=== PATIENT | female | born 1990 | race Caucasian/White ===

== ENCOUNTER → 2018-07-30 18:16 | Outpatient (CLI) | payer SELFPAY ==
[2018-07-30 21:51] LABS: Chlamydia Trachomatis by PCR Negative (Negative); Neisserai gonorrhoeae by PCR Negative (Negative); Probe Check PASS; Sample Adequacy Control PASS; Specimen Processing Control PASS
[2018-08-06 09:57] LABS: HPV Reflexed? NOT INDICATED
--- OUTSIDE RECORDS SUMMARY | 2018-09-25 09:51 | XMS RPT_ITS ---
:1990 Author Organization OHIP Care Team Providers Name Role Phone Laurie Kirkland Attending Unavailable Laurie Kirkland Attending Unavailable Laurie Kirkland Referring Unavailable PROBLEMS PROBLEMS DATE TYPE CONDITION / CODE ATTENDING STATUS SOURCE 08/14/2018 Unknown Z34.81 - Encounter Laurie Kirkland Active [place] for supervision of Community other normal Hospital , first Repository trimester / Z34.81(ICD-10) 07/31/2018 Unknown Z12.4 - Encounter Laurie Kirkland Active [place] for screening for Community malignant neoplasm [facility] of cervix / Repository Z12.4(ICD-10) 07/31/2018 Unknown Z11.3 - Encounter Laurie Kirkland Active [place] for screening for Community infections with a Hospital predominantly Repository sexual mode of transmission / Z11.3(ICD-10) PROCEDURES PROCEDURES No Procedure Records FoundRESULTS RESULTS CBC W/DIFF, AUTOMATED Collected: 08/14/2018 Status: F Source: [place] 10:19 AM [facility] REPOSITORY TYPE CODE TESTS RESULT OUT OF RANGE REFERENCE UNITS LAB L100.1000 4.4-11.0 K/mm3 Normal WBC 10.1 LAB L100.1200 4.2-5.4 M/mm3 Normal RBC 4.88 LAB L100.1300 12.0-15.0 g/dl Normal HGB 13.8 LAB L100.1400 37-47 % Normal HCT 42.2 LAB L100.1500 81-99 fL Normal MCV 86.5 LAB L100.1600 27.0-32.0 pg Normal MCH 28.3 LAB L100.1700 32-36 g/gl Normal MCHC 32.7 LAB L100.1810 11.6-14.6 % Normal RDW CV 13.8 LAB L100.1820 35.1-43.9 fl Normal RDW SD 43.5 LAB L100.1900 150-450 K/mm3 Normal PLT 291 LAB L100.2000 6.2-12.0 fl Normal MPV 9.4 LAB L100.2100 47-70 % High NEUT% 72.7 LAB L100.2200 19-41 % Normal LY% 19.1 LAB L100.2300 0-10 % Normal MONO% 7.2 LAB L100.2400 0-5 % Normal EO% 0.5 LAB L100.2500 0-1 % Normal BASO% 0.3 LAB L100.2550 0.0-0.9 % Normal IM GRAN % 0.200 Result Comment: IG% - Immature Granulocytes (promyelocytes, myelocytes and metamyelocytes) > 1% indicates that a LEFT SHIFT is Present. LAB L100.2620 2.0-7.7 X10 3/uL Normal Absolute Neut 7.3 LAB L100.2720 0.83-4.51 X10 3/ul Normal Absolute Lymph 1.92 Performed By: #### L100.0100 #### [facility] [address], [place], [address] THYROID STIM HORMONE Collected: 08/14/2018 Status: F Source: [place] (TSH) 10:19 AM [facility] REPOSITORY TYPE CODE TESTS RESULT OUT OF RANGE REFERENCE UNITS LAB L501.9520 0.358-3.74 uIU/mL Normal TSH 2.33 Performed By: #### L501.9520 #### [facility] [address] [place], [address] URINALYSIS, ROUTINE Collected: 08/14/2018 Status: F Source: [place] (DIPSTICK) 10:19 AM [facility] REPOSITORY Order Comment: How was Urine Obtained? Urine, Random TYPE CODE TESTS RESULT OUT OF RANGE REFERENCE UNITS LAB L400.3000 Yellow COLOR Normal Yellow LAB L400.3050 Clear Normal CLARITY Cloudy LAB L400.3200 Normal mg/dl Normal GLUCOSE, UR Normal LAB L400.3300 Negative mg/dL Normal BILIRUBIN URINE Negative LAB L400.3400 Negative mg/dl Normal KETONE UR Negative LAB L400.3465 1.002-1.030 Normal SP.GR. DIPSTX 1.025 LAB L400.3550 5.0 - 8.0 pH UR Normal 6.0 LAB L400.3600 Negative mg/dl High PROT 15 DIPSTX LAB L400.3700 Normal mg/dl Normal UROBILI Normal LAB L400.3750 Negative Normal NITRITE UR Negative LAB L400.3780 Negative /ul Normal OCCULT BLOOD-UR Negative LAB L400.3800 Negative /ul LEUK Normal ESTERASE Negative Performed By: #### L400.2010 #### [facility] [address] [place], [address] RUBELLA IGG Collected: 08/14/2018 Status: F Source: [place] 10:19 AM [facility] REPOSITORY TYPE CODE TESTS RESULT OUT OF RANGE REFERENCE UNITS LAB L509.4000 IU/mL Normal Rubella IgG 40.5 Result Comment: Antibody results Interpretation of Immune Status < 5 IU/ml Presumed Non-immune 5 - < 10 IU/ml Equivocal > or = 10 IU/ml Presumed Immune Performed By: #### L509.4000, L3890.6005 #### [facility] [address] [facility] [place], [address] HIV - [facility] Collected: 08/14/2018 Status: F Source: [place] 10:19 AM [facility] REPOSITORY TYPE CODE TESTS RESULT OUT OF RANGE REFERENCE UNITS LAB L3890.6005 Nonreactive Normal HIV - [facility] Non-Reactive Performed By: #### L509.4000, L3890.6005 #### [facility] [address] [place], [address] T AND S-NO Collected: 08/14/2018 Status: F Source: [place] CHARGE W/PNP 10:19 AM [facility] REPOSITORY Order Comment: Reason for Type AND Screen/Red Cells: Surgery? N TYPE CODE TESTS RESULT OUT OF RANGE REFERENCE UNITS LAB B10.0800 A Normal BLOOD NEGATIVE TYPE GEL LAB B100.4050 Normal Ab SCREEN NEGATIVE GEL Performed By: #### B100.7550 #### [facility] [address] [place], [address] HEPATITIS B SURFACE Collected: 08/14/2018 Status: F Source: [place] 10:19 AM [facility] REPOSITORY TYPE CODE TESTS RESULT OUT OF RANGE REFERENCE UNITS LAB L3100.0400 Negative Normal HB Negative SURF AG Result Comment: Performed at: [facility] [id number] Decorator Mannequin: Prince Weiss PhD, Phone: [phone] Performed By: #### L3100.0390, L3100.0625 #### [facility] (refer to report for specific site) refer to report for address and phone number HEPATITIS C ANTIBODIES Collected: 08/14/2018 Status: F Source: [place] 10:19 AM [facility] REPOSITORY TYPE CODE TESTS RESULT OUT OF RANGE REFERENCE UNITS LAB L3100.0650 0.0-0.9 s/co ratio Normal HEP C AB <0.1 Result Comment: Negative: < 0.8 Indeterminate: 0.8 - 0.9 Positive: > 0.9 The CDC recommends that a positive HCV antibody result be followed up with a HCV Nucleic Acid Amplification test (783485). Performed By: #### L3100.0390, L3100.0625 #### [facility] (refer to report for specific site) refer to report for address and phone number RPR Collected: 08/14/2018 Status: F Source: [place] 10:19 AM [facility] REPOSITORY TYPE CODE TESTS RESULT OUT OF REFERENCE UNITS RANGE LAB L700.5100 NONREACTIVE Normal RPR NONREACTIVE Performed By: #### L700.5100 #### [facility] [address] [facility] [place], [place], [id number] CT/NG W[facility] BY PCR Collected: 07/30/2018 Status: F Source: [place] 2:45 PM [facility] REPOSITORY TYPE CODE TESTS RESULT OUT OF RANGE REFERENCE UNITS LAB L8200.2100 Negative Normal Chlam Negative Trac PCR LAB L8200.2200 Negative Normal NG by Negative PCR Performed By: #### L8200.2000 #### [facility] [address] [facility] [place], [place], [address] PAP I-G W/RFX HRHPV Collected: 07/30/2018 Status: F Source: [place] 2:45 PM [facility] REPOSITORY Order Comment: CYTOLOGY INFORMATION: - CLINICAL INFORMATION: - DATE LMP/MENOPAUSE: - COLLECTION VIAL: Thin Prep Vial - RN PSYCH SOURCE: CERVICAL/ENDOCERVICAL - COLLECTION TECHNIQUE: BRUSH/SPATULA Specimen Comment: [id number] Specimen Comment: Source.............Cervix;Endocervix Specimen Comment: Other.............. Specimen Comment: No. of containers..01 ThinPrep Vial TYPE CODE TESTS RESULT OUT OF RANGE REFERENCE UNITS LAB L7400.0800 . Normal DIAGN Comment Result Comment: NEGATIVE FOR INTRAEPITHELIAL LESION AND MALIGNANCY. THIS SPECIMEN WAS RESCREENED PART OF OUR MATERIAL CONTROL MANAGER PROGRAM. LAB L7400.0900 . Normal ADEQ Comment Result Comment: Satisfactory for evaluation. Endocervical and/or squamous metaplastic cells (endocervical component) are present. LAB L7400.1400 . Normal PERFORM Comment Result Comment: Nuzhat Williamson, Supervisory Binder Cutter Hand (ASCP) LAB L7400.1500 . Normal QC Comment REV Result Comment: Erna Blanco, Supervisory Binder Cutter Hand (ASCP) LAB L7400.2575 . Normal TEST METHOD Comment Result Comment: This liquid based ThinPrep(R) pap test was screened with the use of an image guided system. LAB L7400.2600 . Normal . COMM LAB L7400.2700 . Normal PAPSMR Comment Result Comment: The Pap smear is a screening test designed to aid in the detection of premalignant and malignant conditions of the uterine cervix. It is not a diagnostic procedure and should not be used as the sole means of detecting cervical cancer. Both false-positive and false-negative reports do occur. LAB L7400.2800 . Normal HPV RFLX Comment Result Comment: The HPV DNA reflex criteria were not met with this specimen result therefore, no HPV testing was performed. Performed at: [facility] [id number] Decorator Mannequin: Elizabeth Thao MD, Phone: [phone] Performed By: #### L7400.0350 #### [facility] (refer to report for specific site) refer to report for address and phone number ALLERGIES ALLERGIES No Allergies Records FoundENCOUNTERS ENCOUNTERS ADMIT/DISCHARGE ACCOUNT ADMITTING ENCOUNTER LOCATION SOURCE NUMBER CLASS 08/14/2018 [id number] Ambulatory [address] ing:WOBLAB Repository 07/30/[id number] ing:LABSPEC Repository PAYERS PAYERS ENCOUNTER GUARANTOR PAYER SUBSCRIBER SOURCE 08/14/2018 FABIÁN B Primary NOT GIVENUNK [facility] TR Insurance:SELF PAY [address] [address]Qpm: [phone] Number: Effective Repository [phone] () Date:2018-08-14 07/30/2018 FABIÁN B Primary NOT GIVENUNK [facility]8[address] TR Insurance:SELF PAY [address] [address]Kom: [phone] Number: Effective Repository [phone] () Date:2018-07-30
== END ==
PROVIDERS: Referring Provider Obstetrics & Gynecology; Visit Provider Obstetrics & Gynecology
DX: Z34.81 Encounter for supervision of other normal pregnancy, first trimester (principal); Z12.4 Encounter for screening for malignant neoplasm of cervix; Z11.3 Encounter for screening for infections with a predominantly sexual mode of transmission
CPT/HCPCS: 87491; 87591; 88175; G0145

== ENCOUNTER → 2018-08-14 10:13 | Outpatient (CLI) | payer SELFPAY ==
[2018-08-14 13:47] LABS: Color, Urine Yellow (Yellow); Glucose, Dipstick Normal (Normal); Ketone-Dipstick Negative (Negative); Leukocyte Esterase-Dipstick Negative /ul (Negative); Nitrite-Dipstick Negative (Negative); Occult Blood-Urine Negative /ul (Negative); Protein-Dipstick 15 mg/dl (Negative); Specific Gravity, Urine 1.025 (1.002-1.030); Urine Bilirubin Dipstick Negative (Negative); Urine Clarity Cloudy (Clear); Urine Urobilinogen Normal (Normal)
[2018-08-14 13:52] LABS: Absolute Lymphocyte Count 1.92 X10^3/ul (0.83-4.51); Absolute Neutrophil Count 7.3 X10^3/uL (2.0-7.7); Basophil# 0.03 X10^3/uL; Basophil% 0.3 % (0-1); Eosinophil# 0.05 X10^3/uL; Eosinophils% 0.5 % (0-5); Hematocrit 42.2 % (37-47); Hemoglobin 13.8 g/dl (12.0-15.0); Lymphocyte # 1.92 X10^3/ul (4.0); Lymphocyte % 19.1 % (19-41); Mean Corp Hgb Conc 32.7 g/gl (32-36); Mean Corpuscular Hgb 28.3 pg (27.0-32.0); Mean Corpuscular Volume 86.5 fL (81-99); Mean Platelet Vol. 9.4 fl (6.2-12.0); Monocyte# 0.72 X10^3/uL; Monocyte% 7.2 % (0-10); Neutrophil # 7.31 X10^3/uL (2.7-7.7); Neutrophil % 72.7 % (47-70); POSITIVE COUNT NO; POSITIVE DIFFERENTIAL NO; POSITIVE MORPHOLOGY NO; Platelet Count 291 K/mm3 (150-450); RBC Distribution Width CV 13.8 % (11.6-14.6); RBC Distribution Width SD 43.5 fl (35.1-43.9); Red Blood Count 4.88 M/mm3 (4.2-5.4); White Blood Count 10.1 K/mm3 (4.4-11.0)
[2018-08-14 14:15] LABS: Thyroid Stim Hormone (TSH) 2.33 uIU/mL (0.358-3.74)
[2018-08-14 14:55] LABS: HIV - WCH Non-Reactive (Nonreactive); Rubella IgG 40.5 IU/mL
[2018-08-15 07:43] LABS: HEPATITIS B SURFACE AG Negative (Negative); Hep C Antibodies <0.1 s/co ratio (0.0-0.9)
[2018-08-16 04:55] LABS: Prenatal RPR NONREACTIVE (NONREACTIVE)
--- OUTSIDE RECORDS SUMMARY | 2018-09-30 11:58 | XMS RPT_ITS ---
[...] Unknown Z12.4 - Encounter Laurie Kirkland Active [place] for screening for Community malignant neoplasm [facility] of cervix / Repository Z12.4(ICD-10) 07/31/2018 Unknown Z11.3 - Encounter Laurie Kirkland Active [place] for screening for Community infections with a Hospital predominantly Repository sexual mode of transmission / Z11.3(ICD-10) PROCEDURES PROCEDURES No Procedure Records FoundRESULTS RESULTS CBC W/DIFF, AUTOMATED Collected: 08/14/2018 Status: F Source: [place] 10:19 AM [facility] REPOSITORY TYPE CODE TESTS RESULT [...] Lymph 1.92 Performed By: #### L100.0100 #### [facility] [address] [place], [place], [address] THYROID STIM HORMONE Collected: 08/14/2018 Status: F Source: [place] (TSH) 10:19 AM [facility] REPOSITORY TYPE CODE TESTS RESULT OUT OF RANGE REFERENCE UNITS LAB L501.9520 0.358-3.74 uIU/mL Normal TSH 2.33 Performed By: #### L501.9520 #### [facility] [address] [place], [address] URINALYSIS, ROUTINE Collected: 08/14/2018 Status: F Source: [place] (DIPSTICK) 10:19 AM [facility] REPOSITORY Order Comment: How was Urine Obtained? [...] ESTERASE Negative Performed By: #### L400.2010 #### [facility] [address] [place], [address] RUBELLA IGG Collected: 08/14/2018 Status: F Source: [place] 10:19 AM [facility] REPOSITORY TYPE CODE TESTS RESULT OUT OF RANGE REFERENCE UNITS LAB L509.4000 IU/mL Normal Rubella IgG 40.5 Result Comment: Antibody results Interpretation of Immune Status < 5 IU/ml Presumed Non-immune 5 - < 10 IU/ml Equivocal > or = 10 IU/ml Presumed Immune Performed By: #### L509.4000, L3890.6005 #### [facility] [address] [facility] [place], [address] HIV - [facility] Collected: 08/14/2018 Status: F Source: [place] 10:19 AM [facility] REPOSITORY TYPE CODE TESTS RESULT OUT OF RANGE REFERENCE UNITS LAB L3890.6005 Nonreactive Normal HIV - [facility] Non-Reactive Performed By: #### L509.4000, L3890.6005 #### [facility] [address] [facility] [place], [address] T AND S-NO Collected: 08/14/2018 Status: F Source: [place] CHARGE W/PNP 10:19 AM [facility] REPOSITORY Order Comment: Reason for Type AND Screen/Red Cells: Surgery? N TYPE CODE TESTS RESULT OUT OF RANGE REFERENCE UNITS LAB B10.0800 A Normal BLOOD NEGATIVE TYPE GEL LAB B100.4050 Normal Ab SCREEN NEGATIVE GEL Performed By: #### B100.7550 #### [facility] [address] [place], [address] HEPATITIS B SURFACE Collected: 08/14/2018 Status: F Source: [place] 10:19 AM [facility] REPOSITORY TYPE CODE TESTS RESULT OUT OF RANGE REFERENCE UNITS LAB L3100.0400 Negative Normal HB Negative SURF AG Result Comment: Performed at: [facility] [id number] Collar Shaper Operator: Prince Weiss PhD, Phone: [phone] Performed By: #### L3100.0390, L3100.0625 #### [facility] (refer to report for specific site) refer to report for address and phone number HEPATITIS C ANTIBODIES Collected: 08/14/2018 Status: F Source: [place] 10:19 AM [facility] REPOSITORY TYPE CODE TESTS RESULT OUT OF RANGE REFERENCE UNITS LAB L3100.0650 0.0-0.9 s/co ratio Normal HEP C AB <0.1 Result Comment: Negative: < 0.8 Indeterminate: 0.8 - 0.9 Positive: > 0.9 The CDC recommends that a positive HCV antibody result be followed up with a HCV Nucleic Acid Amplification test ([id number]). Performed By: #### L3100.0390, L3100.0625 #### [facility] (refer to report for specific site) refer to report for address and phone number RPR Collected: 08/14/2018 Status: F Source: [place] 10:19 AM [facility] REPOSITORY TYPE CODE TESTS RESULT OUT OF REFERENCE UNITS RANGE LAB L700.5100 NONREACTIVE Normal RPR NONREACTIVE Performed By: #### L700.5100 #### [facility] [address] [facility] [place], [place], [id number] CT/NG [facility] BY PCR Collected: 07/30/2018 Status: F Source: [place] 2:45 PM [facility] REPOSITORY TYPE CODE TESTS RESULT OUT OF RANGE REFERENCE UNITS LAB L8200.2100 Negative Normal Chlam Negative Trac PCR LAB L8200.2200 Negative Normal NG by Negative PCR Performed By: #### L8200.2000 #### [facility] [address] [facility] [place], [place], [address] PAP I-G W/RFX HRHPV Collected: 07/30/2018 Status: F Source: [place] 2:45 PM [facility] REPOSITORY Order Comment: CYTOLOGY INFORMATION: - CLINICAL INFORMATION: - DATE LMP/MENOPAUSE: - COLLECTION VIAL: Thin Prep Vial - RN SURGERY SOURCE: CERVICAL/ENDOCERVICAL - COLLECTION TECHNIQUE: BRUSH/SPATULA Specimen Comment: [id number] Specimen Comment: Source.............Cervix;Endocervix Specimen Comment: Other.............. Specimen Comment: No. of containers..01 ThinPrep Vial TYPE CODE TESTS RESULT OUT OF RANGE REFERENCE UNITS LAB L7400.0800 . Normal DIAGN Comment Result Comment: NEGATIVE FOR INTRAEPITHELIAL LESION AND MALIGNANCY. THIS SPECIMEN WAS RESCREENED PART OF OUR FORMS ANALYST PROGRAM. LAB L7400.0900 . Normal ADEQ Comment Result Comment: Satisfactory for evaluation. Endocervical and/or squamous metaplastic cells (endocervical component) are present. LAB L7400.1400 . Normal PERFORM Comment Result Comment: Nuzhat Williamson, Supervisory Refuge Manager (ASCP) LAB L7400.1500 . Normal QC Comment REV Result Comment: Erna Blanco, Supervisory Refuge Manager (ASCP) LAB L7400.2575 . Normal TEST METHOD [...] no HPV testing was performed. [facility]formed at: [facility] [id number] Collar Shaper Operator: Elizabeth Thao MD, Phone: [phone] Performed By: #### L7400.0350 #### [facility] (refer to report for specific site) refer to report for address and phone number ALLERGIES ALLERGIES No Allergies Records FoundENCOUNTERS ENCOUNTERS ADMIT/DISCHARGE ACCOUNT ADMITTING ENCOUNTER LOCATION SOURCE NUMBER CLASS 08/14/2018 [id number] Ambulatory [address] ing:WOBLAB Repository 07/30/[id number] ing:LABSPEC Repository PAYERS PAYERS ENCOUNTER GUARANTOR PAYER SUBSCRIBER SOURCE 08/14/2018 FABIÁN B Primary NOT GIVENUNK [facility]8[address] TR Insurance:SELF PAY [address] [address]Jof: [phone]) Number: Effective Repository [phone] () Date:2018-08-14 07/30/2018 FABIÁN B Primary NOT GIVENUNK [facility]8[address] TR Insurance:SELF PAY [address] [address]Vhb: [phone]) Number: Effective Repository [phone] () Date:2018-07-30
== END ==
PROVIDERS: Visit Provider Obstetrics & Gynecology
DX: Z34.81 Encounter for supervision of other normal pregnancy, first trimester (principal)
CPT/HCPCS: 36415; 81002; 84443; 85025; 86703; 86762; 86803; 87340

== ENCOUNTER → 2018-12-31 11:16 | Outpatient (CLI) | payer SELFPAY ==
[2018-12-31 13:48] LABS: Hematocrit 36.6 % (37-47); Hemoglobin 12.1 g/dl (12.0-15.0); Mean Corp Hgb Conc 33.1 g/gl (32-36); Mean Corpuscular Hgb 28.7 pg (27.0-32.0); Mean Corpuscular Volume 86.9 fL (81-99); Mean Platelet Vol. 9.6 fl (6.2-12.0); Platelet Count 261 K/mm3 (150-450); RBC Distribution Width CV 13.1 % (11.6-14.6); RBC Distribution Width SD 40.4 fl (35.1-43.9); Red Blood Count 4.21 M/mm3 (4.2-5.4); White Blood Count 8.3 K/mm3 (4.4-11.0)
[2018-12-31 13:53] LABS: Scan Indicated on CBC? Y/N NO
[2018-12-31 14:14] LABS: Glucose Challenge Gest 1H 50g 92 mg/dL (70-140)
== END ==
PROVIDERS: Visit Provider Obstetrics & Gynecology
DX: Z34.83 Encounter for supervision of other normal pregnancy, third trimester (principal)
CPT/HCPCS: 36415; 82950; 85027; 86850

== ENCOUNTER → 2019-02-25 16:22 | Outpatient (CLI) | payer SELFPAY | PROVIDERS: Visit Provider Obstetrics & Gynecology | DX: Z36.85 Encounter for antenatal screening for Streptococcus B (principal) | CPT/HCPCS: 87081 ==

== ENCOUNTER → 2019-03-05 11:50 | Outpatient (CLI) | payer SELFPAY ==
[2019-03-05 12:22] LABS: Hematocrit 36.8 % (37-47); Mean Corp Hgb Conc 32.6 g/gl (32-36); Mean Corpuscular Hgb 28.4 pg (27.0-32.0); Mean Platelet Vol. 9.2 fl (6.2-12.0); Platelet Count 244 K/mm3 (150-450); RBC Distribution Width CV 13.9 % (11.6-14.6); RBC Distribution Width SD 43.9 fl (35.1-43.9); Red Blood Count 4.23 M/mm3 (4.2-5.4); White Blood Count 9.1 K/mm3 (4.4-11.0)
[2019-03-05 12:25] LABS: Scan Indicated on CBC? Y/N NO
== END ==
PROVIDERS: Visit Provider Obstetrics & Gynecology
DX: Z34.83 Encounter for supervision of other normal pregnancy, third trimester (principal)
CPT/HCPCS: 36415; 85027

== ENCOUNTER → 2019-03-07 09:14 | Outpatient (CLI) | payer SELFPAY ==
[2019-03-07 11:09] LABS: Protein, Urine (Random) 18.1 mg/dL (<11.9); Protein:Creat Ratio 144 mg/g CRE (0-200)
== END ==
PROVIDERS: Visit Provider Obstetrics & Gynecology
DX: O16.3 Unspecified maternal hypertension, third trimester (principal); Z3A.00 Weeks of gestation of pregnancy not specified
CPT/HCPCS: 82570; 84156

== ENCOUNTER 2019-03-17 19:05 | Inpatient (IN) | payer SELFPAY ==
[2019-03-17 19:57] VITALS: BMI 44.4
[2019-03-17] MEDS: Lactated Ringers 1,000 ML 50 ML IV (20:17)
[2019-03-17 20:42] LABS: Absolute Lymphocyte Count 1.86 X10^3/ul (0.83-4.51); Absolute Neutrophil Count 6.1 X10^3/uL (2.0-7.7); Basophil# 0.01 X10^3/uL; Basophil% 0.1 % (0-1); Eosinophil# 0.03 X10^3/uL; Eosinophils% 0.3 % (0-5); Hematocrit 33.4 % (37-47); Hemoglobin 10.9 g/dl (12.0-15.0); Lymphocyte # 1.86 X10^3/ul (4.0); Lymphocyte % 21.6 % (19-41); Mean Corp Hgb Conc 32.6 g/gl (32-36); Mean Corpuscular Hgb 28.2 pg (27.0-32.0); Mean Corpuscular Volume 86.3 fL (81-99); Mean Platelet Vol. 9.3 fl (6.2-12.0); Monocyte# 0.62 X10^3/uL; Monocyte% 7.2 % (0-10); Neutrophil # 6.06 X10^3/uL (2.7-7.7); Neutrophil % 70.6 % (47-70); Platelet Count 245 K/mm3 (150-450); RBC Distribution Width CV 13.8 % (11.6-14.6); RBC Distribution Width SD 43.5 fl (35.1-43.9); Red Blood Count 3.87 M/mm3 (4.2-5.4); White Blood Count 8.6 K/mm3 (4.4-11.0)
[2019-03-17 20:44] LABS: POSITIVE COUNT NO; POSITIVE DIFFERENTIAL NO; POSITIVE MORPHOLOGY NO
[2019-03-17] MEDS: 0.9% Saline Lock 10 ML Syringe IV (21:48)
[2019-03-17] MEDS: Oxytocin 30 units/NS 500 ml 30 UNITS/500 ML IV.SOLN IV (21:52)
[2019-03-17] MEDS: Mag Hydrox/Al Hydrox/Simeth 30 ML UDC PO (23:00)
[2019-03-18] MEDS: Acetaminophen 325 MG Tablet PO (06:09)
--- NOTE | 2019-03-18 06:54 | PCM.HPOB.BLA ---
History and Physical Date of Admission: 03/17/19 OB HISTORY AND PHYSICAL EXAMINATION History of this : 29 yo female Ab1 with EDC 03/21/2019 by 8 weeks 5 days Ultrasound, presents to Labor and Delivery care remarkable for - A negative, Rubella Immune GBS negative. 1.) R carpal tunnel sx 2.) DECLINED 20 wk sono had recreational sono in [place]. 3.) A NEGATIVE 4.) has a 1 yr old nephew born with a heart valve defect 5.) Post-dates with both daughters and prolonged labors. Pertinent Past Medical History: none Allergies: No Known Drug Allergies Medications: During - 28 mg iron-800 mcg tablet; Probiotic 10 billion cell capsule; Tamiflu 75 mg capsule Review of Systems: Non-contributory PHYSICAL EXAMINATION General Appearence: 29 yo female in no acute distress Vital Signs: AF, VSS Heart: RRR without rubs or gallops Lungs: CTA x 2 Breasts: deferred Abdomen: gravid Pelvis: Cervix: Presentation: cephalic Station: Fetus: Size: AGA Movement: present Heart: present Impression /Plan: Intrauterine . Preperations in progress for delivery. See Progress Notes for Changes: Physician's Signature: Date:
[2019-03-18] MEDS: Ondansetron 4 MG/2 ML Vial IV (07:26)
--- NOTE | 2019-03-18 08:06 | PN_ITS ---
Progress Note LABOR PROGRESS NOTE. A NEGATIVE, Rubella IMMUNE. GBS NEGATIVE. Induction of labor at 39 4/7 wk EGA PIH. H/o prolonged labors. Low dose Pitocin overnight and not feeling any UCs. BOWI Able to sleep some. AVSS Pitocin at 1 mIU/min CX: very high. 40 / 3 EFM: 110-130s with accels. Intermittent tracing, difficult to monitor. Category I tracing. Rare to no UCs noted A/P: induction at 39 4/7 wk for PIH. H/O very prolonged labors. Unable to safely reach for AROM at this point. Will plan for that later. with IUPC and s calp lead placement then for monitoring Continue Pitocin per protocol.
[2019-03-18] MEDS: Lactated Ringers 1,000 ML 50 ML IV ×2 (09:27→15:20)
--- NOTE | 2019-03-18 11:59 | PCM.PN.BLA ---
Progress Note INDUCTION 39 4/7 wk PIH. Feeling some UCs. 3-4/10 pain scale Sitting in rocking chair drinking broth. NAD AVSS Pitocin at 15 mIU/min CX: deferred. will check after lunch. consider AROM. EFM: 140-150s avg variability. Accels. Occasional mild variable. UCs q 3-4 minx A/P: induction PIH 39 4/7 wk AROM Planned . continue pitocin. Plans epidural? Anticipate H/O prolonged labors lasting 27-37 hrs.
[2019-03-18] MEDS: fentaNYL-bupivacaine (epidural) 100 ML BAG EPIDURAL (13:28)
[2019-03-18] MEDS: Amnioinfusion- 0.9% NS 1,000 ML IV.SOLN. 300 ML INTRA-UTER (16:10)
--- NOTE | 2019-03-18 17:30 | PCM.PN.BLA ---
Progress Note 39 4/7 wk induction. In hands and knees. Feeling more pressure with last UCs. Pitocin cut in half as FHT with deep variables, HR in 90s for several minutes. Position changes to hands and knees AVSS Pitocin at 8 mIU/min EFM 130-140s avg variability at present with accels. UCs noted CX: reducible lip with pt in knee chest. A/P Induction 39 1/2 wk EGA. Pitocin AROM. Anticipate . Likely to complete soon.
[2019-03-18] MEDS: Oxytocin 30 units/NS 500 ml 30 UNITS/500 ML IV.SOLN 334 UNITS IV (17:55)
--- NOTE | 2019-03-18 18:03 | PCM.OPRPT ---
Vaginal Delivery Maternal Presentation: Medically Indicated Induction PIH 39 4/7 wk EGA Method of Induction: Pitocin, Amniotomy Amniotic Membrane Rupture Type: Artificial Amniotic Fluid Description: Clear Final ERIN: 03/21/19 Gestational age: 39 Weeks and 4 Days Date of Procedure: 03/18/19 Pre-Operative Diagnosis: 39 4/7 wk EGA Post-Operative Diagnosis: Same Surgery/ Procedure Performed: Spontaneous Vaginal Delivery Type of Anesthesia: Epidural Description of Procedure: of a livingston viable female over intact perineum to lacerations. head delivered LISA. Nuchal cord reduced. Shoulders delivered easily with forward rotation of anterior shoulder and maternal expulsive effort. Body cord times two and cord around L arm times two reduced at delivery. OP and nares bulb suctioned. Infant to maternal abdomen then for drying and stim. Cord clamped times two and cut. Cord blood for typing collected. PP exam; R periurethral laceration extending to old avulsion laceration of anterior labia minora. Repaired periurethral laceration under epidural to hemostatic and intact with 3-0 Vicryl Rapide. 2nd deg perineal and vaginal laceration repaired with 3-0 Vicryl Rapide also to hemostatic and intact. No other lacerations. Placenta delivered by spont expulsion expression. 3V cord, normal appearing with trailing membranes. Uterus manually explored, evacuated of small clots. EBL 300 cc Pt and tolerated delivery well. to recovery stable condition. Ray Butch and needle counts correct times two. Presentation: Vertex, LISA Placental Delivery Description: Spontaneous, Expressed Placenta Disposition: [facility] Cord Vessel Description: 3 Vessels Nuchal Cord Compression: With compression Cord Entanglement: Around neck x 1, loose - body cord twice and cord around L arm/wrist twice. Estimated Blood Loss: 300 A gender: Female (1 minute): 7 (5 minute): 8 Episiotomy Description: None Laceration: Midline, Periurethral Extnsion/lac, Vaginal Extension/lac, 1st degree, 2nd degree Medications given after delivery: IV Pitocin Complications: None
--- NOTE | 2019-03-18 18:09 | DCINST_ITS ---
Discharge Diet: No Restrictions Discharge Activity: May Shower, May Take a Tub Bath May resume sexual activity in: 4-6 weeks Additional Activity Instructions:: Nothing in the vagina for 4-6 weeks. You may return to work/school in 6 weeks. Additional Instructions: If you experience any of the following, contact your healthcare provider. * Bleeding that soaks a pad every hour for 2 hours * Fever 100.4 or higher * Unrelieved abdominal pain * Problems urinating (including inability to urinate or burning while urinating). * Visual changes * Severe headache * Flu-like symptoms * Pain or redness in one of both of your breasts * Pain, warmth, tenderness or swelling in your legs, especially the calf area * Frequent nausea and vomiting * Symptoms of depression or anxiety If you experience any of the following, call 911 or go to the nearest Emergency Room. * Chest pain * Problems breathing * Seizure activity * Partial or complete paralysis of a body part, slurred speech, weakness or drooping of the face, or a sudden inability to walk or hold your balance Allergies/Adverse Reactions: Allergies No Known Allergies Allergy (Verified 03/17/19 19:55) Medications to take at Discharge Vits [Prenatabs FA ] 1 tab PO DAILY 03/17/19 Please Follow Up With: Laurie Kirkland MD - [phone] When: Call to make an appointment with your doctor in 6 weeks. Primary Care Physician: Shaun Gutierrez DO [Primary Care Provider] - Test Results: Test results from this visit will be discussed in further detail at your follow- up appointment, if applicable. Proposed Discharge Date: 03/20/19
--- NOTE | 2019-03-18 18:09 | PCM.DCVAG ---
Discharge Diet: No Restrictions Discharge Activity: May Shower, May Take a Tub Bath May resume sexual activity in: 4-6 weeks Additional Activity Instructions:: Nothing in the vagina for 4-6 weeks. You may return to work/school in 6 weeks. Additional Instructions: If you experience any of the following, contact your healthcare provider. Bleeding that soaks a pad every hour for 2 hours Fever 100.4 or higher Unrelieved abdominal pain Problems urinating (including inability to urinate or burning while urinating). Visual changes Severe headache Flu-like symptoms Pain or redness in one of both of your breasts Pain, warmth, tenderness or swelling in your legs, especially the calf area Frequent nausea and vomiting Symptoms of depression or anxiety If you experience any of the following, call 911 or go to the nearest Emergency Room. Chest pain Problems breathing Seizure activity Partial or complete paralysis of a body part, slurred speech, weakness or drooping of the face, or a sudden inability to walk or hold your balance Allergies/Adverse Reactions: Allergies No Known Allergies Allergy (Verified 03/17/19 19:55) Medications to take at Discharge Vits [Prenatabs FA ] 1 tab PO DAILY 03/17/19 Please Follow Up With: Laurie Kirkland MD - [phone] When: Call to make an appointment with your doctor in 6 weeks. Primary Care Physician: Shaun Gutierrez DO [Primary Care Provider] - Test Results: Test results from this visit will be discussed in further detail at your follow-up appointment, if applicable. Proposed Discharge Date: 03/20/19
[2019-03-18] MEDS: Oxytocin 30 units/NS 500 ml 30 UNITS/500 ML IV.SOLN 167 UNITS IV (18:25)
[2019-03-18] MEDS: Acetaminophen 500 MG Tablet 1000 MG PO (18:40)
[2019-03-18] MEDS: Ibuprofen 600 MG Tablet PO (22:53)
[2019-03-18 23:00] VITALS: BP 142/72; PULSE 71; RESP 18; TEMP 36.7
[2019-03-19 03:00] VITALS: BP 125/71; PULSE 71; RESP 18; TEMP 36.4
[2019-03-19] MEDS: Acetaminophen 500 MG Tablet 1000 MG PO ×2 (05:11→15:05)
[2019-03-19 05:18] LABS: Hematocrit 31.4 % (37-47); Hemoglobin 10.4 g/dL (12.0-15.0); Mean Corp Hgb Conc 33.1 g/dL (32-36); Mean Corpuscular Hgb 29.3 pg (27.0-32.0); Mean Corpuscular Volume 88.5 fL (81-99); Mean Platelet Vol. 9.5 fl (6.2-12.0); Platelet Count 196 K/mm3 (150-450); RBC Distribution Width CV 13.5 % (11.6-14.6); RBC Distribution Width SD 43.7 fl (35.1-43.9); Red Blood Count 3.55 M/mm3 (4.2-5.4); White Blood Count 9.3 K/mm3 (4.4-11.0)
[2019-03-19 07:55] VITALS: BP 143/81; PULSE 91; RESP 14; TEMP 36.6
--- NOTE | 2019-03-19 08:05 | PCM.PN.OB ---
Subjective: PPD#1 Doing well. Would like to go home today if baby is released Nursing. cramping inc with nursing. Bleeding approx as a period. - Physical Exam General: Alert, Oriented x3, Cooperative, No apparent distress HEENT: Atraumatic, EOMI Neck: Supple Neurological: Cranial nerves II-XII grossly intact Psych/Mental Status: Normal Affect Vital Signs Temp Pulse Resp BP 97.9 F 91 14 143/81 H 03/19/19 07:55 03/19/19 07:55 03/19/19 07:55 03/19/19 07:55 Oxygen Delivery Method Room Air Weight: 128.8 kg Body Mass Index (BMI) 44.4 Intake and Output for Last 24 Hours 03/17/19 03/18/19 03/19/19 23:59 23:59 23:59 Intake Total 3134 / 3134 Output Total 1400 / 1400 775 / 775 Balance 1734 / 1734 -775 / -775 Laboratory Tests Past 24 Hrs 03/18/19 03/19/19 18:50 05:05 WBC 9.3 RBC 3.55 L Hgb 10.4 L Hct 31.4 L MCV 88.5 MCH 29.3 MCHC 33.1 RDW Std Deviation 43.7 RDW Coeff of [place] 13.5 Plt Count 196 MPV 9.5 Screen NEGATIVE Baby's Blood Type A POSITIVE Baby's ALEX NEGATIVE Medical Necessity - Tobacco Use Smoking Status: Never smoker Assessment/Plan PPD#1 Doing well. Nursing Would like to go home today. Dischg home. Hold dischg if baby is not released.
[2019-03-19] MEDS: Ibuprofen 600 MG Tablet PO ×2 (08:12→15:05)
[2019-03-19] MEDS: Prenatal Vits Tablet 1 TABLET PO (11:52)
[2019-03-19 11:57] VITALS: BP 136/69; PULSE 81; RESP 12; TEMP 36.7
[2019-03-19 16:50] VITALS: BP 141/80; PULSE 85; RESP 14; TEMP 37
--- NOTE | 2019-03-30 06:32 | PCM.HPOB.BLA ---
History and Physical Date of Admission: 03/17/19 OB HISTORY AND PHYSICAL EXAMINATION History of this : 29 yo female Ab1 with EDC 03/21/2019 by 8 weeks 5 days Ultrasound, presents to Labor and Delivery for induction of labor induced HTN and unfavorable cervix with history of prolonged labors, post-dates with both prior pregnancies. care remarkable for 1.)- R carpal tunnel sx, 2.) DECLINED 20 wk sono MSAFP and CF testing declined, 3.) A NEGATIVE Pertinent Past Medical History: prolonged labors. Allergies: No Known Drug Allergies Medications: During - 28 mg iron-800 mcg tablet; Probiotic 10 billion cell capsule; Tamiflu 75 mg capsule Review of Systems: Non-contributory PHYSICAL EXAMINATION General Appearance: 29 yo female in no acute distress Vital Signs: AF, VSS Lungs: Regular rate and rhythm Abdomen: gravid Pelvis: adequate Cervix: Fingertip, high Presentation: cephalic Fetus: Size: AGA Movement: present Heart: Category I tracing with irregular UCs. Impression /Plan: Intrauterine . 39 4/7 wk for induction of labor PIH H/O prolonged labors. Admitted for labor and delivery. Planned Cytotec but changed to Pitocin as some UCs noted See Progress Notes for Changes: Physician's Signature: Date: This H and P is to replace the one deleted from her chart prior. Patient was seen and re-examined at the time of her admission. See progress notes for changes to this H and P after her admission Terry Kirkland MD Regenerated this H and P and resigned this H and P 03/30/19 at 0637 am.
== END 2019-03-19 20:26 | disposition home or self-care (01) | DRG 807 ==
PROVIDERS: Obstetrics & Gynecology; Admitting Provider Obstetrics & Gynecology; Family Provider Family Medicine; PCP Family Medicine; Referring Provider Obstetrics & Gynecology; Visit Provider Obstetrics & Gynecology
DX: O13.4 Gestational [pregnancy-induced] hypertension without significant proteinuria, complicating childbirth (principal); Z37.0 Single live birth; O69.1XX0 Labor and delivery complicated by cord around neck, with compression, not applicable or unspecified; O70.1 Second degree perineal laceration during delivery; O71.82 Other specified trauma to perineum and vulva; Z3A.39 39 weeks gestation of pregnancy
CPT/HCPCS: 59025; 59050; 85025; 85027; 85461; 86850; 86900; 90384; 99218; J7030; J7120; A4216; G0378; J2405; J2790

== ENCOUNTER → 2022-05-24 | Outpatient (CLI) | payer SELFPAY ==
[2022-05-24 15:44] LABS: Absolute Lymphocyte Count 1.82 X10^3/uL (0.83-4.51); Absolute Neutrophil Count 5.2 X10^3/uL (2.0-7.7); Basophil# 0.03 X10^3/uL; Basophil% 0.4 % (0-1); Eosinophil# 0.05 X10^3/uL; Eosinophils% 0.7 % (0-5); Hematocrit 42.2 % (37-47); Hemoglobin 13.8 g/dL (12.0-15.0); Lymphocyte # 1.82 X10^3/ul (0.83-4.51); Lymphocyte % 23.9 % (19-41); Mean Corp Hgb Conc 32.7 g/dL (32-36); Mean Corpuscular Hgb 28.6 pg (27.0-32.0); Mean Corpuscular Volume 87.6 fL (81-99); Mean Platelet Vol. 9.5 fl (6.2-12.0); Monocyte% 6.6 % (0-10); NRBC Flagged by Analyzer 0 % (0-5); Neutrophil # 5.21 X10^3/uL (2.7-7.7); Neutrophil % 68.1 % (47-70); Platelet Count 293 K/mm3 (150-450); RBC Distribution Width CV 13.2 % (11.6-14.6); RBC Distribution Width SD 42.1 fl (35.1-43.9); Red Blood Count 4.82 M/mm3 (4.2-5.4); White Blood Count 7.6 K/mm3 (4.4-11.0)
[2022-05-24 16:25] LABS: hCG Titer Quant., Serum 9532 mIU/mL (1-3)
== END | disposition home or self-care (01) ==
LOC: WOBLAB 14:06
PROVIDERS: PCP Family Medicine; Visit Provider Obstetrics & Gynecology
DX: N91.2 Amenorrhea, unspecified (principal)
CPT/HCPCS: 36415; 84702; 85025; 86850; 86900; 86901

== ENCOUNTER → 2022-06-08 | Outpatient (CLI) | payer SELFPAY ==
[2022-06-08 15:25] LABS: hCG Titer Quant., Serum 8 mIU/mL (1-3)
== END | disposition home or self-care (01) ==
PROVIDERS: PCP Family Medicine; Visit Provider Obstetrics & Gynecology
DX: O03.9 Complete or unspecified spontaneous abortion without complication (principal)
CPT/HCPCS: 36415; 84702

== ENCOUNTER 2022-09-03 11:01 | Emergency (ER) | payer OTHER, SELFPAY ==
[2022-09-03 11:02] VITALS: BP 153/98; PULSE 74; RESP 18; TEMP 35.9; O2SAT 100; BMI 46.0
--- NOTE | 2022-09-03 11:16 | US_ITS ---
STUDY: FIRST TRIMESTER OBSTETRICAL ULTRASOUND REASON FOR EXAM: Female, 32 years old Heavy vaginal bleeding LMP: July 07, 2022 TECHNIQUE: Transabdominal and Transvaginal TECHNICAL QUALITY: Adequate. PRIOR ULTRASOUND: None. FINDINGS: There is visualization of a single gestational sac in a normal intrauterine position. The mean sac diameter (MSD) measures 2.7 cm, indicating an estimated gestational age (EGA) of 7 weeks, 5 days. There is adjacent 3.2 x 1.2 cm hypoechoic region compatible with subchorionic hemorrhage. There is a visualized yolk sac. The yolk sac measures 0.3 cm. The placenta is non-visualized. There is visualization of a live embryo. The crown-rump length (CRL) measures 1.3 cm, indicating an estimated gestational age (EGA) of 7 weeks, 4 days. There is demonstrated cardiac activity with a heart rate of 159 bpm. The estimated gestation age (EGA) by LMP is 6 weeks, 2 days. The estimated date of delivery (ERIN) by LMP is April 13, 2023. The estimated gestation age (EGA) by US is 7 weeks, 4 days. The estimated date of delivery (ERIN) by US is April 18, 2023. The uterus measures 14.3 x 10.1 x 6.2 cm. There is 1.9 cm hypoechoic mass in the posterior myometrium compatible with fibroid. The cervix is closed. The right ovary measures 3.4 x 3.1 x 1.9 cm. There is no right ovarian cyst. There is no visualized right adnexal mass or complex lesion. The left ovary measures 3.7 x 2.4 x 1.6 cm. There is no left ovarian cyst. There is no visualized left adnexal mass or complex lesion. There is no fluid in the cul de sac. US/Transvaginal w/Preg US IMPRESSION: Single intrauterine gestation 7 weeks 4 days with estimated due date April 18, 2023. There is subchorionic hemorrhage. Electronically Signed: Sabino Johnson MD at 13:24 EST ,
--- NOTE | 2022-09-03 11:17 | ED.VIS.FEGU ---
HPI HPI - Female History of Present Illness Chief Complaint: Vag Bld, Preg Detail of Chief Complaint: Vaginal bleeding x1 hour Informant: patient Narrative Narrative: Patient seen urgency department complaint of vaginal bleeding that started an hour ago. Patient concerned because she is 8 weeks and has had prior miscarriages. Patient is G6, P3 with 2 prior miscarriages. Patient describes minimal lower abdominal discomfort. She has not had a pelvic ultrasound or OB appointment. [facility] Medical History (Updated 09/03/22 @ 14:[address] Trang Reveles DO) Asthma Home Medications vits,calcium no.78-iron fumarate-folic acid 29 mg-1 mg tablet 1 tab PO DAILY 03/17/19 [History Last Taken Unknown] Allergy/AdvReac Type Severity Reaction Status Date / Time No Known Allergies Allergy Verified 09/03/22 11:04 Family History (Updated 08/29/22 @ 09:38 by Qian Veliz) Grandmother Breast cancer, Onset Age: 42 Paternal Social History (Updated 08/29/22 @ 09:11 by Qian Veliz) adopted: No household members: spouse and children housing: house number of children: 3 current occupational status: unemployed pets and animals: No history of recent travel: No sexually active: Yes Smoking Status: Never smoker alcohol intake: never substance use type: does not use well-balanced diet: daily or most days caffeine: No eating out: rarely or never during the past year weight has: remained stable what type of physical activity do you participate in: none trinh/nondenominational: Alevism seatbelt use: always do you feel safe at home: Yes additional social history: [employer]- [employer] ROS ROS ED Review of Systems ROS Unobtainable: other Constitutional Constitutional ED: Reports lethargy; Denies chills, fever(s), sweats or weight loss Eyes Eyes: Denies blurry vision, change in vision or diplopia ENT ENT ED: Denies rhinorrhea or sore throat Cardiovascular Cardiovascular: Denies chest pain, orthopnea or racing heartbeat Respiratory/Chest Respiratory/Chest: Denies cough, dyspnea, dyspnea on exertion, orthopnea or sputum Gastrointestinal Gastrointestinal: Denies abdominal pain, diarrhea, nausea or vomiting Genitourinary Genitourinary ED: Reports other Details: Vaginal bleeding ; Denies dysuria, hematuria or urinary frequency Musculoskeletal Musculoskeletal: Denies arthralgias, back pain, myalgias or neck pain Integumentary Denies abscess, Abrasions or rash Neurologic Neurologic: Denies headache(s) or weakness Psychiatric Psychiatric: Denies anxiety, depression or suicidal thoughts Endocrine Endocrinology: Denies polydipsia, polyphagia or polyuria Hematologic/Lymphatic Hematologic/Lymphatic: Denies easy bleeding, easy bruising or lymphadenopathy Allergic/Immunologic Allergic/Immunologic ED: Denies mouth swelling, tongue swelling or urticaria EXAM Physical Exam Const Vital Signs: 09/03/22 11:02 Temperature 96.6 F L Temperature Source Temporal Pulse Rate 74 Respiratory Rate 18 Blood Pressure 153/98 H Blood Pressure Mean 116 Pulse Ox 100 Oxygen Delivery Method Room Air Positive well nourished and well developed General Appearance ED: well developed and NAD HEENT Reports TM's clear and moist mucous membranes normocephalic and atraumatic; Negative for trauma or tenderness Tympanic Membrane ED: Yes TM's clear Eyes PERRL and EOMs intact bilaterally General Eye ED: Negative for pale conjunctiva or scleral icterus Neck no lymphadenopathy, supple and no JVD General: Negative for tenderness Chest Wall inspection of chest normal and palpation of chest normal Chest: Negative for tenderness Resp normal respiratory effort and clear to auscultation bilaterally Effort and Inspection: Negative for respiratory distress or pain with movement Auscultation: Negative for rhonchi, wheezes or diminished lung sounds Cardio regular rate, regular rhythm, S1 normal heart sound, S2 normal heart sound and no murmurs Peripheral Pulses: pulses 2+ throughout GI normal to inspection, nondistended, normoactive bowel sounds, soft to palpation, non-tender, non-distended and no masses Back/Spine no CVA tenderness and no thoracic nor lumbar tenderness Extremity normal to inspection General Extremety ED: Negative for edema General Extremity: Negative for edema Neuro oriented x3, CN's II-XII intact bilaterally, no sensory deficits noted and gait normal Sensorium / Orientation: awake, alert, oriented to person, oriented to place and oriented to time Motor Exam: strength 5/5 throughout and strength abnormal Psych mental status grossly normal Skin no rashes or lesions noted and no wounds MDM MDM MDM Narrative Medical decision making narrative: Social arrival. CBC with differential white count 7.5, hemoglobin 14, hematocrit 43, platelets 277. hCG quant was 60,854. Blood type was A-. Urinalysis showed red blood cells otherwise nothing acute as far as infection. I did discuss case with Dr. Rai who is the [facility] on-call who recommended RhoGAM and follow-up with their office by the end of the week. Patient was instructed to return if having more than saturated pad per hour for 4 consecutive hours. Patient to return if severe abdominal pain or lightheadedness or condition should worsen anyway. Lab Data Attestation: I reviewed the patient's lab results. Labs: Laboratory Results - last 24 hr 09/03/22 09/03/22 09/03/22 11:35 11:35 11:35 WBC 7.5 RBC 4.93 Hgb 14.1 Hct 42.6 MCV 86.4 MCH 28.6 MCHC 33.1 RDW Std Deviation 40.7 RDW Coeff of [place] 13.2 Plt Count 277 MPV 9.1 Immature Gran % (Auto) 0.300 Neut % (Auto) 70.1 H Lymph % (Auto) 22.3 [place] % (Auto) 6.4 Eos % (Auto) 0.5 Baso % (Auto) 0.4 Absolute Neuts (auto) 5.2 Absolute Lymphs (auto) 1.66 Nucleated RBC % 0 HCG, Quant 95267 H Urine Color Urine Clarity Urine pH Ur Specific [place] Urine Protein Urine Glucose (UA) Urine Ketones Urine Occult Blood Urine Nitrite Urine Bilirubin Urine Urobilinogen Ur Leukocyte Esterase Urine RBC Urine WBC Ur Squamous Epith Cells Urine Bacteria Urine Mucus Blood Type A NEGATIVE 09/03/22 12:51 WBC RBC Hgb Hct MCV MCH MCHC RDW Std Deviation RDW Coeff of [place] Plt Count MPV Immature Gran % (Auto) Neut % (Auto) Lymph % (Auto) [place] % (Auto) Eos % (Auto) Baso % (Auto) Absolute Neuts (auto) Absolute Lymphs (auto) Nucleated RBC % HCG, Quant Urine Color Red Urine Clarity Cloudy Urine pH 7.0 Ur Specific [place] 1.010 Urine Protein 100 H Urine Glucose (UA) Normal Urine Ketones 5 H Urine Occult Blood 250 H Urine Nitrite Negative Urine Bilirubin Negative Urine Urobilinogen Normal Ur Leukocyte Esterase 25 H Urine RBC > 100 SEEN Urine WBC 0 SEEN Ur Squamous Epith Cells 0 SEEN Urine Bacteria 0 SEEN Urine Mucus 0 SEEN Blood Type Radiography Diagnostic Testing: Clinical Impression(s) from Imaging Studies Obstetrics Ultrasound 09/03/22 11:16 IMPRESSION: Single intrauterine gestation 7 weeks 4 days with estimated due date April 18, 2023. There is subchorionic hemorrhage. Electronically Signed: Sabino Johnson MD at 13:24 EST , Discharge Plan Triage Chief Complaint: Vag Bld, Preg ED Provider: Trang Reveles Dx/Rx/DC Orders Clinical Impression: Threatened in first trimester Instructions: ED Possible Miscarriage ... Prescriptions: No Action vit,[id number] 1 TABLET tablet 1 tab PO DAILY Primary Care Provider: Shaun Gutierrez Referrals: Shaun Gutierrez DO [Primary Care Provider] - Rhoda Pereyra DO [Med Staff - Active Staff] - 3-5 Days Disposition Disposition: Home, Self Care
[2022-09-03 11:47] LABS: Absolute Lymphocyte Count 1.66 X10^3/uL (0.83-4.51); Absolute Neutrophil Count 5.2 X10^3/uL (2.0-7.7); Basophil# 0.03 X10^3/uL; Basophil% 0.4 % (0-1); Eosinophil# 0.04 X10^3/uL; Eosinophils% 0.5 % (0-5); Hematocrit 42.6 % (37-47); Hemoglobin 14.1 g/dL (12.0-15.0); Lymphocyte # 1.66 X10^3/ul (0.83-4.51); Lymphocyte % 22.3 % (19-41); Mean Corp Hgb Conc 33.1 g/dL (32-36); Mean Corpuscular Hgb 28.6 pg (27.0-32.0); Mean Corpuscular Volume 86.4 fL (81-99); Mean Platelet Vol. 9.1 fl (6.2-12.0); Monocyte# 0.48 X10^3/uL; Monocyte% 6.4 % (0-10); NRBC Flagged by Analyzer 0 % (0-5); Neutrophil # 5.22 X10^3/uL (2.7-7.7); Neutrophil % 70.1 % (47-70); Platelet Count 277 K/mm3 (150-450); RBC Distribution Width CV 13.2 % (11.6-14.6); RBC Distribution Width SD 40.7 fl (35.1-43.9); Red Blood Count 4.93 M/mm3 (4.2-5.4); White Blood Count 7.5 K/mm3 (4.4-11.0)
[2022-09-03] MEDS: 0.9% Normal Saline 1,000 ML 1000 ML IV (12:05)
[2022-09-03 12:55] LABS: Bacteria 0 SEEN /hpf (None Seen); Mucous, Urine 0 SEEN /hpf (<or=2+); Squamous Epithelial Cells - UA 0 SEEN /hpf (5-10); White Blood Cells 0 SEEN /hpf (0-5)
[2022-09-03 12:58] LABS: Color, Urine Red (Yellow); Glucose, Dipstick Normal (Normal); Ketone-Dipstick 5 mg/dl (Negative); Leukocyte Esterase-Dipstick 25 /ul (Negative); Nitrite-Dipstick Negative (Negative); Occult Blood-Urine 250 /ul (Negative); Protein-Dipstick 100 mg/dl (Negative); Urine Bilirubin Dipstick Negative (Negative); Urine Clarity Cloudy (Clear); Urine Urobilinogen Normal (Normal)
[2022-09-03 13:06] LABS: Red Blood Cells-Urine > 100 SEEN /hpf (0-5)
== END 2022-09-03 14:57 | disposition home or self-care (01) ==
PROVIDERS: Emergency Provider Emergency Medicine; PCP Family Medicine; Visit Provider Emergency Medicine
DX: O20.0 Threatened abortion (principal); O26.21 Pregnancy care for patient with recurrent pregnancy loss, first trimester; Z3A.08 8 weeks gestation of pregnancy
CPT/HCPCS: 76817; 81001; 84702; 85025; 86900; 86901; 96360; 96361; 99281; 99282; J7030; J2790

== ENCOUNTER → 2022-09-07 | Outpatient (CLI) | payer SELFPAY ==
--- NOTE | 2022-09-07 13:47 | US_ITS ---
STUDY: FIRST TRIMESTER OBSTETRICAL ULTRASOUND REASON FOR EXAM: Female, 32 years old viability LMP: 07/07/2022. TECHNIQUE: Transvaginal TECHNICAL QUALITY: Adequate. PRIOR ULTRASOUND: None. FINDINGS: There is visualization of a single gestational sac in a normal intrauterine position. The mean sac diameter (MSD) measures 3.4 cm, indicating an estimated gestational age (EGA) of 80 weeks, 4 days. The gestational sac shape is within normal limits. There is a visualized yolk sac. The yolk sac measures 4 mm. The placenta is non-visualized. There is visualization of a live embryo. The crown-rump length (CRL) measures 1.35 cm, indicating an estimated gestational age (EGA) of 7 weeks, 5 days. There is demonstrated cardiac activity with a heart rate of 169 bpm. The estimated gestation age (EGA) by LMP is 8 weeks, 6 days. The estimated date of delivery (ERIN) by LMP is 04/13/2023. The estimated gestation age (EGA) by US is 8 weeks, 1 days. The estimated date of delivery (ERIN) by US is 04/18/2023. The uterus measures 14.3 cm x 9.4 cm x 7.4 cm. There is a small subchorionic bleed measuring 7 mm x 8 mm x 15 mm. There is no demonstrated uterine fibroid. The cervix is closed. The ovaries were not visualized due to overlying bowel gas. There is no fluid in the cul de sac. US/Transvaginal w/Preg US IMPRESSION: Single live uterine gestation with a major station age of 8 weeks and 1 day. Small subchorionic bleed measuring 7 mm x 8 mm x 15 mm. Electronically Signed: Abdoulaye Handley MD at 14:49 EST ,
== END | disposition home or self-care (01) ==
LOC: US 13:45
PROVIDERS: PCP Family Medicine; Visit Provider Obstetrics & Gynecology
DX: O20.0 Threatened abortion (principal); Z3A.00 Weeks of gestation of pregnancy not specified
CPT/HCPCS: 76817

== ENCOUNTER → 2022-09-25 | Outpatient (CLI) | payer SELFPAY ==
[2022-09-28 04:07] LABS: Chlamydia By Nucleic Acid AMP Negative (Negative)
[2022-09-28 19:12] LABS: Gonococcus By Nucleic Acid AMP Negative (Negative)
[2022-09-29 18:44] LABS: HPV APTIMA, High Risk Negative (Negative)
== END | disposition home or self-care (01) ==
PROVIDERS: PCP Family Medicine; Referring Provider Obstetrics & Gynecology; Visit Provider Obstetrics & Gynecology
DX: Z34.91 Encounter for supervision of normal pregnancy, unspecified, first trimester (principal)
CPT/HCPCS: 87086; 87088; 87491; 87591; 87624; 88175; G0145

== ENCOUNTER → 2022-10-16 | Outpatient (CLI) | payer SELFPAY ==
[2022-10-16 14:05] LABS: Absolute Lymphocyte Count 1.46 X10^3/uL (0.83-4.51); Absolute Neutrophil Count 5.9 X10^3/uL (2.0-7.7); Basophil# 0.01 X10^3/uL; Basophil% 0.1 % (0-1); Eosinophil# 0.03 X10^3/uL; Eosinophils% 0.4 % (0-5); Hematocrit 36.9 % (37-47); Hemoglobin 12.8 g/dL (12.0-15.0); Lymphocyte # 1.46 X10^3/ul (0.83-4.51); Lymphocyte % 18.6 % (19-41); Mean Corp Hgb Conc 34.7 g/dL (32-36); Mean Corpuscular Hgb 29.7 pg (27.0-32.0); Mean Corpuscular Volume 85.6 fL (81-99); Mean Platelet Vol. 9.2 fl (6.2-12.0); Monocyte# 0.43 X10^3/uL; Monocyte% 5.5 % (0-10); NRBC Flagged by Analyzer 0 % (0-5); Neutrophil # 5.89 X10^3/uL (2.7-7.7); Platelet Count 249 K/mm3 (150-450); RBC Distribution Width CV 13.2 % (11.6-14.6); RBC Distribution Width SD 40.8 fl (35.1-43.9); Red Blood Count 4.31 M/mm3 (4.2-5.4); White Blood Count 7.9 K/mm3 (4.4-11.0)
[2022-10-16 14:29] LABS: Glucose Challenge Gest 1H 50g 121 mg/dL (70-140)
[2022-10-16 15:42] LABS: HIV - WCH Non-Reactive (Nonreactive); Hepatitis B Surface Antigen Non-Reactive (Nonreactive); Hepatitis C Antibody Non-Reactive (Nonreactive); Rubella IgG Reactive (Nonreactive); Syphilis Antibodies Non-reactive
== END | disposition home or self-care (01) ==
PROVIDERS: PCP Family Medicine; Referring Provider Obstetrics & Gynecology; Visit Provider Obstetrics & Gynecology
DX: Z34.91 Encounter for supervision of normal pregnancy, unspecified, first trimester (principal)
CPT/HCPCS: 36415; 82950; 85025; 86703; 86762; 86780; 86803; 86850; 86870; 86900; 86901; 87340

== ENCOUNTER → 2022-10-25 | Outpatient (CLI) | payer SELFPAY | END | disposition home or self-care (01) | PROVIDERS: PCP Family Medicine; Referring Provider Obstetrics & Gynecology; Visit Provider Obstetrics & Gynecology | DX: O26.899 Other specified pregnancy related conditions, unspecified trimester (principal); Z67.91 Unspecified blood type, Rh negative | CPT/HCPCS: 36415 ==

== ENCOUNTER → 2022-11-23 | Outpatient (CLI) | payer SELFPAY ==
--- NOTE | 2022-11-23 12:39 | US_ITS ---
STUDY: SECOND AND THIRD TRIMESTER OBSTETRICAL ULTRASOUND REASON FOR EXAM: Female, 32 years old . anatomy. LMP: July 07, 2022. TECHNIQUE: Transabdominal TECHNICAL QUALITY: Adequate. PRIOR ULTRASOUND: Comparison is made with prior examination dated September 07, 2022. FINDINGS: There is a single intrauterine fetus. The fetus is in a variable presentation. There is demonstrated cardiac activity with a heart rate of 152 bpm. There is a normal amniotic fluid volume. The largest amniotic fluid pocket measures 5.5 cm x 7.3 cm. The amniotic fluid index (MADDIE) is within normal limits. The placenta is anterior in location and is not low lying. There are Grade 0 placental changes. The cervix measures 3.5 cm in length. The bilateral adnexal regions are normal. BIOMETRY: BPD: 4.49 cm: 19 weeks, 4 days HC: 17.04 cm: 19 weeks, 5 days AC: 14.91 cm: 20 weeks, 1 days FL: 3.13 cm: 19 weeks, 5 days CI: 77% FL/BPD: 70% FL/HC: FL/AC: 21% HC/AC: 1.14 age by current US: 19 weeks, 5 days. ERIN by current US: April 14, 2023. Estimated weight: 322 grams, +/- 48 grams, 49 %. age by prior US: 19 weeks, 4 days. ERIN by prior US: April 15, 2023. Age by LMP: 19 weeks, 6 days. ERIN by LMP: April 13, 2023. ANATOMY: Gender: Male Cranium: Normal lateral ventricles. Normal choroid plexus. Normal cerebellum. Normal cisterna magna. Normal face, nose and lips. Chest: Normal 4-chamber heart. Abdomen/Pelvis: Normal diaphragm. Normal stomach. Normal abdominal wall. Normal cord insertion. Normal 3 vessel cord. Normal kidneys. Normal bladder. Spine: Normal cervical spine. Normal thoracic spine. Normal lumbar spine. Normal sacrum. Extremities: Normal bilateral upper extremities. Normal bilateral lower extremities. US/OB Anatomy Scan IMPRESSION: Single live injury Intrauterine gestation with a mean gestational age of 19 weeks and 4 days. The measurements obtained today fall within the normal expected range. Electronically Signed: Abdoulaye Handley MD at 15:06 EDT ,
== END | disposition home or self-care (01) ==
PROVIDERS: PCP Family Medicine; Visit Provider Nurse Practitioner Women's Health
DX: Z34.92 Encounter for supervision of normal pregnancy, unspecified, second trimester (principal)
CPT/HCPCS: 76805

== ENCOUNTER → 2023-01-08 | Outpatient (CLI) | payer SELFPAY ==
[2023-01-08 14:17] LABS: Basophil# 0.01 X10^3/uL; Basophil% 0.1 % (0-1); Eosinophil# 0.04 X10^3/uL; Eosinophils% 0.4 % (0-5); Hematocrit 35.7 % (37-47); Hemoglobin 11.8 g/dL (12.0-15.0); Lymphocyte % 16.5 % (19-41); Mean Corp Hgb Conc 33.1 g/dL (32-36); Mean Corpuscular Hgb 29.7 pg (27.0-32.0); Mean Corpuscular Volume 89.9 fL (81-99); Monocyte% 5.5 % (0-10); NRBC Flagged by Analyzer 0 % (0-5); Neutrophil # 7.01 X10^3/uL (2.7-7.7); Neutrophil % 77.2 % (47-70); Platelet Count 250 K/mm3 (150-450); RBC Distribution Width CV 13.2 % (11.6-14.6); RBC Distribution Width SD 43.5 fl (35.1-43.9); Red Blood Count 3.97 M/mm3 (4.2-5.4); White Blood Count 9.1 K/mm3 (4.4-11.0)
[2023-01-08 14:31] LABS: Glucose Challenge Gest 1H 50g 123 mg/dL (70-140)
[2023-01-08 15:20] LABS: HIV - WCH Non-Reactive (Nonreactive); Syphilis Antibodies Non-reactive
== END | disposition home or self-care (01) ==
PROVIDERS: PCP Family Medicine; Referring Provider Obstetrics & Gynecology; Visit Provider Obstetrics & Gynecology
DX: O09.90 Supervision of high risk pregnancy, unspecified, unspecified trimester (principal); Z3A.00 Weeks of gestation of pregnancy not specified; Z13.1 Encounter for screening for diabetes mellitus
CPT/HCPCS: 36415; 82950; 85025; 86703; 86780; 86900; 86901

== ENCOUNTER → 2023-01-15 | Outpatient (CLI) | payer SELFPAY ==
[2023-01-15 14:39] LABS: ROM Internal Control Test YES-OK TO RESULT pt. (Internal QC); ROM Patient Test Negative (Negative)
== END | disposition home or self-care (01) ==
LOC: LABSPEC 15:02
PROVIDERS: PCP Family Medicine; Referring Provider Nurse Practitioner Women's Health; Visit Provider Nurse Practitioner Women's Health
DX: O09.90 Supervision of high risk pregnancy, unspecified, unspecified trimester (principal); Z3A.00 Weeks of gestation of pregnancy not specified
CPT/HCPCS: 84112

== ENCOUNTER → 2023-03-23 | Outpatient (CLI) | payer SELFPAY | END | disposition home or self-care (01) | LOC: LABSPEC 17:10 | PROVIDERS: PCP Family Medicine; Referring Provider Advanced Practice Midwife; Visit Provider Advanced Practice Midwife | DX: O09.90 Supervision of high risk pregnancy, unspecified, unspecified trimester (principal); Z3A.00 Weeks of gestation of pregnancy not specified | CPT/HCPCS: 87077; 87081; 87186 ==

== ENCOUNTER 2023-04-16 16:40 | Inpatient (IN) | payer SELFPAY ==
[2023-04-16] VITALS (68 sets, daily range): BP systolic 94–168; BP diastolic 39–97; PULSE 66–138; RESP 15–21; TEMP 36.6–37.8; O2SAT 78–100; BMI 45.7
[2023-04-16 16:28] LABS: Hematocrit 37.4 % (37-47); Hemoglobin 12.1 g/dL (12.0-15.0); Mean Corp Hgb Conc 32.4 g/dL (32-36); Mean Corpuscular Hgb 28.9 pg (27.0-32.0); Mean Corpuscular Volume 89.3 fL (81-99); Mean Platelet Vol. 9.7 fl (6.2-12.0); Platelet Count 252 K/mm3 (150-450); RBC Distribution Width CV 14.1 % (11.6-14.6); Red Blood Count 4.19 M/mm3 (4.2-5.4); White Blood Count 8.7 K/mm3 (4.4-11.0)
[2023-04-16] MEDS: Labetalol (Prefilled) 20 MG/4 ML IV (16:59)
--- NOTE | 2023-04-16 17:00 | HP.PCM.OB_ITS ---
HPI - General General Date of Admission: 04/16/23 HPI Narrative FABIÁN SUAREZ, is a 33 F who presents with elevated blood pressure and tachycardia. history of elevated blood pressure with previous . Maternal Data Information ERIN Calculator Estimated Delivery Date Method Current WG Current Estimate 04/13/23 LMP (Certain) 40w 3d [facility] Medical History Asthma Home Medications vits,calcium no.78-iron fumarate-folic acid 29 mg-1 mg tablet 1 tab PO DAILY 03/17/19 [History Last Taken Unknown] Allergy/AdvReac Type Severity Reaction Status Date / Time No Known Allergies Allergy Verified 04/16/23 14:49 Family History Grandmother Breast cancer, Onset Age: 42 Paternal Social History adopted: No household members: spouse and children housing: house number of children: 3 current occupational status: unemployed pets and animals: No history of recent travel: No sexually active: Yes Smoking Status: Never smoker alcohol intake: never substance use type: does not use well-balanced diet: daily or most days caffeine: No eating out: rarely or never during the past year weight has: remained stable what type of physical activity do you participate in: none trinh/spiritism: Sikh seatbelt use: always do you feel safe at home: Yes additional social history: Bryce Suarez- [employer] History 6 Elective abortions Hx Para 3 Spontaneous abortions 2 Hx # Term Pregnancies Ectopic pregnancies Hx # Pregnancies Multiple births # of living children 3 Past Pregnancies Del. Date Name GA/Weeks Outcome Route Bth Weight Gen Labor Lgth Anesthesia Del Locatn Provider FOB 10/12/13 Ric 41 live - full term 6#6oz Female 37 ovidio rs epidural Verenice Wu 03/17/15 Miscarriage 12 weeks 03/30/16 Porsha 41 live - full term 7#9oz Female 27 ovidio rs epidural Verenice Wu 03/18/19 Cassidy 39 8# Female 7 Hours epidural [facility] Dr. Marita Wu 06/09/22 miscarriage 11wks fetus 6wks Delivery Date: 03/18/19 Last Updated by: Qian Veliz IOL, pre eclampsia Visit Details Expected Delivery Route/Plan Labor Preferences- CB/BF classes: no labor support person: Bryce labor intervention preferences: [] pain management options preferred: epidural, would like without cut cord/dad catch: cord : yes PP control planned: discussed discussed possible routes of delivery and associated risks: [] special requests: [] Plans Covid status: discussed Flu vaccine: discussed Tdap vaccine: declines Rhogam: received LARC form signed: yes Problem list reviewed and updated with the most current plan of care details and appropriate orders placed. Relevant counseling for the gestational age provided. Continue routine care and follow up unless otherwise noted in visit notes/problem list details OB Flowsheet Initial Weight: Not Recorded Date -?-?-?-?-?-?-?-?-?-?-?-?- EGA Weight BP Urine Prot -?-?-?-?-?-?-?-?-?-?-?-?- Glucose FHR FuHt Pres Dilation -?-?-?-?-?-?-?-?-?-?-?-?- Effaced St Visit Note 10/16/22 -?-?-?-?-?-?-?-?-?-?-?-?- 14w 3d 293 lb 143/86 Negative -?-?-?-?-?-?-?-?-?-?-?-?- Negative 160 -?-?-?-?-?-?-?-?-?-?-?-?- SM- no vb crampi ng 11/13/22 -?-?-?-?-?-?-?-?-?-?-?-?- 18w 3d 289 lb 8 oz 138/78 Nega tive -?-?-?-?-?-?-?-?-?-?-?-?- Negative 160 -?-?-?-?-?-?-?-?-?-?-?-?- MH-No Vb. Brief US confirm FHT. 12/11/22 -?-?-?-?-?-?-?-?-?-?-?-?- 22w 3d 292 lb 6 oz 137/87 Nega tive -?-?-?-?-?-?-?-?-?-?-?-?- Negative 150 -?-?-?-?-?-?-?-?-?-?-?-?- SM- no vb lof go od fm no regular ctx reveiwed bps are WNL encouraged ot check at home again 01/08/23 -?-?-?-?-?-?-?-?-?-?-?-?- 26w 3d 292 lb 138/82 Negative -?-?-?-?-?-?-?-?-?-?-?-?- Negative 152 -?-?-?-?-?-?-?-?-?-?-?-?- -No Vb, LOF. G ood FM. Did 28 wk labs today. Aware needs T&S for rhogam next visit. Larc 01/15/23 -?-?-?-?-?-?-?-?-?-?-?-?- 27w 3d 288 lb 2 oz 136/82 -?-?-?-?-?-?-?-?-?-?-?-?- 151 28 0 -?-?-?-?-?-?-?-?-?-?-?-?- -thinks leakin g fluid X 3 days. No VB or CTX. Good FM. ROMplus is pending 02/02/23 -?-?-?-?-?-?-?-?-?-?-?-?- 30w 0d 288 lb 6 oz 120/80 Trac e -?-?-?-?-?-?-?-?-?-?-?-?- Negative 138 30 -?-?-?-?-?-?-?-?-?-?-?-?- LC-no vb/ctx/lof . good fm. no concerns. 02/21/23 -?-?-?-?-?-?-?-?-?-?-?-?- 32w 5d 289 lb 4 oz 120/73 Trac e -?-?-?-?-?-?-?-?-?-?-?-?- Negative 135 32 -?-?-?-?-?-?-?-?-?-?-?-?- KW-+FM. no vb/lo f/cramping. no concerns 03/09/23 -?-?-?-?-?-?-?-?-?-?-?-?- 35w 0d 289 lb 133/83 Negative -?-?-?-?-?-?-?-?-?-?-?-?- Negative 141 35 -?-?-?-?-?-?-?-?-?-?-?-?- JV- no lof, vagi nal bleeding, or dec fm. has bmi of 45, needs weekly nsts 03/23/23 -?-?-?-?-?-?-?-?-?-?-?-?- 37w 0d 136/82 Trace -?-?-?-?-?-?-?-?-?-?-?-?- Negative 140 37 2 -?-?-?-?-?-?-?-?-?-?-?-?- 50 KW-react dianelys NST. +fm no vb/lof/ctx. GBS today 03/29/23 -?-?-?-?-?-?-?-?-?-?-?-?- 37w 6d 293 lb 4 oz 131/71 -?-?-?-?-?-?-?-?-?-?-?-?- 150 38 -?-?-?-?-?-?-?-?-?-?-?-?- MH-No Vb, LOF. R eactive NST. Declines cx exam. 04/04/23 -?-?-?-?-?-?-?-?-?-?-?-?- 38w 5d 293 lb 8 oz 131/83 Nega tive -?-?-?-?-?--?-?-?-?-?-?-?- Negative 130 39 -?-?-?-?-?-?-?-?-?-?-?-?- LC- no vb/lof/ct x. reactive nst. declines vaginal exam. 04/10/23 -?-?-?-?-?-?-?-?-?-?-?-?- 39w 4d 292 lb 8 oz 140/83 132/84 Negative -?-?-?-?-?-?-?-?-?-?-?-?- Negative 140 40 Cephalic 3 -?-?-?-?-?-?-?-?-?-?-?-?- 60 -3 SM- no vb lof good fm no regular ctx NST FHR Rate Baby A Baseline: 130 Variability:: Moderate Accelerations:: 15 x 15 Decelerations:: None NST Reactive:: Yes FHR Category:: Category I Uterine Activity:: irregular ROS Constitutional Constitutional: Reports systems reviewed and no addt'l complaints, except as documented Eyes Eyes: Denies change in vision ENT HEENT: Reports systems reviewed and no addt'l complaints, except as documented; Denies headache(s) Cardiovascular Cardiovascular: Reports systems reviewed and no addt'l complaints, except as d ocumented; Denies chest pain or dyspnea Respiratory/Chest Respiratory/Chest: Reports systems reviewed and no addt'l complaints, except as documented Gastrointestinal Gastrointestinal: Reports systems reviewed and no addt'l complaints, except as documented; Denies abdominal pain Genitourinary Genitourinary: Reports systems reviewed and no addt'l complaints, except as documented, contractions Details: present (irregular) and movement Details: present; Denies dysuria or genital lesions Musculoskeletal Musculoskeletal: Reports systems reviewed and no addt'l complaints, except as documented Neurologic Neurologic: Reports systems reviewed and no addt'l complaints, except as documented Endocrine Endocrinology: Reports systems reviewed and no addt'l complaints, except as documented Vital Signs Vital Signs Vital Signs: 04/16/23 15:37 04/16/23 15:37 04/16/23 15:39 Pulse Rate 95 Blood Pressure 164/92 H BP Systolic 164 BP Diastolic 92 Pulse Ox 98 04/16/23 15:39 04/16/23 15:42 04/16/23 15:42 Pulse Rate 93 90 Blood Pressure BP Systolic BP Diastolic Pulse Ox 98 04/16/23 15:47 04/16/23 15:47 04/16/23 15:55 Pulse Rate 87 Blood Pressure 155/86 H BP Systolic 155 BP Diastolic 86 Pulse Ox 99 04/16/23 15:55 04/16/23 16:10 04/16/23 16:10 Pulse Rate 82 85 Blood Pressure 166/97 H BP Systolic 166 BP Diastolic 97 Pulse Ox 04/16/23 16:25 04/16/23 16:25 04/16/23 16:40 Pulse Rate 86 Blood Pressure 168/86 H 162/81 H BP Systolic 168 162 BP Diastolic 86 81 Pulse Ox 04/16/23 16:40 04/16/23 16:41 04/16/23 16:41 Pulse Rate 81 83 Blood Pressure BP Systolic BP Diastolic Pulse Ox 98 04/16/23 16:46 04/16/23 16:46 04/16/23 16:51 Pulse Rate 92 78 Blood Pressure BP Systolic BP Diastolic Pulse Ox 99 04/16/23 16:51 Pulse Rate Blood Pressure BP Systolic BP Diastolic Pulse Ox 97 Physical Exam Const alert, oriented x3, no apparent distress and healthy appearing HEENT normocephalic and moist oral mucous membranes Head and Scalp: atraumatic Neck full ROM, no lymphadenopathy, supple and thyroid normal General: trachea midline Lymph Lymphatic: no lymphadenopathy noted Chest inspection of chest normal Resp normal respiratory effort Cardio regular rate GI normal to inspection, nondistended, normoactive bowel sounds, soft to palpation and non-tender Inspection: gravid external exam normal Manual OB Exam: estimated gestational size appropriate, presentation cephalic, dilated, effaced and station Extremity normal to inspection General Extremity: Negative for edema Skin no rashes or lesions noted Neuro no focal motor deficits and deep tendon reflexes 2+ bilaterally Motor Exam: strength 5/5 throughout and clonus absent Psych mental status grossly normal Labs Labs Labs: Blood Type A NEGATIVE Antibody Screen POSITIVE Hct 37.4 % (37-47) Hgb 12.1 g/dL (12.0-15.0) Obstetrics US Syphilis Total Ab Non-reactive Rubella IgG Antibody Reactive (Nonreactive) Hep Bs Antigen Non-Reactive (Nonreactive) Chlamydia DNA ([facility]) Negative (Negative) Neisseria gonorrhoeae DNA ([facility]) Negative (Negative) HIV 1&2 Antibody Non-Reactive (Nonreactive) Glucose 1 Hr 50 gm 123 mg/dL (70-140) Rhogam given: No Miscellaneous Test Assessment & Plan (1) Positive GBS test: COMMENT: treat in labor (2) Vaginal discharge during : (3) Obesity affecting : QUALIFIERS: Trimester: third trimester Obesity type affecting : unspecified obesity Qualified Code(s): O99.213 - Obesity complicating , third trimester COMMENT: 1 tm GCT, encouraged healthy weight gain bmi 45, start nst's weekly (4) Rh negative, antepartum: COMMENT: Rhogam injection @ 28 weeks and PRN for bleeding. Rhogam given 09/03/22 in ER (5) Supervision of high risk , antepartum: COMMENT: PRR , ERIN 04/13/23 boy Porsha Morgan Evelyn Bryce (6) : QUALIFIERS: Weeks of gestation: 40 weeks Qualified Code(s): Z3A.40 - 40 weeks gestation of COMMENT: declined genetic and carrier testing, nl anatomy (7) Preeclampsia, severe: COMMENT: proceed with magnesium sulfate, labetalol, IOL pitocin Epi PRN PLAN: Plan Patient presents IOL, plan management for with pitocin/AROM. Pain management: plans epidural. GBS positive Management of any complications: preeclampsia I have reviewed the PFSH and made any clinically relevant updates.
[2023-04-16] MEDS: Magnesium Sulfate 4gm/100mL 4 GM/100 ML IV.SOLN. IV (17:01)
[2023-04-16] MEDS: Lactated Ringers 1,000 ML 50 ML IV (17:02)
[2023-04-16 17:05] LABS: AST(SGOT) 13 U/L (15-37); Alanine Aminotransfer ALT/SGPT 17 U/L (13-56); Creatinine, Serum 0.48 mg/dL (0.55-1.02); EST Glomerular Filtration Rate 162 mL/min (>60); Est Glom Filt Rate - Afr Amer 196 mL/min (>60); Uric Acid 4.2 mg/dL (2.6-6.0)
[2023-04-16] MEDS: Magnesium Sulfate 4gm/100mL 2 GM/50 ML IV.SOLN. IV (17:30)
[2023-04-16 17:42] LABS: Protein, Urine (Random) 8.6 mg/dL (<11.9); Protein:Creat Ratio 281 mg/g CRE (0-200)
[2023-04-16] MEDS: Magnesium Sulfate 20 GM/500 ML BAG IV (17:42)
[2023-04-16] MEDS: Oxytocin 15 Units/NS 250ml 15 UNITS/250 ML IV.SOLN 2 UNITS IV (17:54)
[2023-04-16 18:51] LABS: Absolute Lymphocyte Count 1.64 X10^3/uL (0.83-4.51); Absolute Neutrophil Count 6.2 X10^3/uL (2.0-7.7); Basophil# 0.03 X10^3/uL; Basophil% 0.4 % (0-1); Eosinophil# 0.03 X10^3/uL; Eosinophils% 0.4 % (0-5); Lymphocyte # 1.64 X10^3/ul (0.83-4.51); Lymphocyte % 19.1 % (19-41); Monocyte# 0.64 X10^3/uL; Monocyte% 7.5 % (0-10); NRBC Flagged by Analyzer 0 % (0-5); Neutrophil % 72.2 % (47-70)
[2023-04-16 19:19] LABS: Syphilis Antibodies Non-reactive
[2023-04-16] MEDS: LACTATED RINGERS 500 ML 999 ML IV ×2 (19:41→21:03)
[2023-04-16] MEDS: fentaNYL-bupivacaine (epidural) 100 ML BAG EPIDURAL (20:38)
[2023-04-16] MEDS: Penicillin G 3,000,000 Units 50 ML 100 UNITS IV (21:40)
[2023-04-17] VITALS (53 sets, daily range): BP systolic 101–187; BP diastolic 50–97; PULSE 65–109; RESP 16–20; TEMP 36.2–37.8; O2SAT 96–100
[2023-04-17] MEDS: Amnioinfusion- 0.9% NS 1,000 ML IV.SOLN. 1000 ML INTRA-UTER ×2 (00:02→06:19)
--- NOTE | 2023-04-17 00:38 | PCM.PN.BLA ---
Progress Note severe periodic variables, resolving with position changes and amnioinfusion current tracing: FHT: 140 Moderate variability reactive intermittent periodic variable decelerations category II tracing [place]: q 3-5 Contractions reviewed tracing abnormalities since last note: periodic variables A/P: pit off, bps low, turn down magnesium to 1g/hr and diuresing well, 250 IVF bolus given, second amnioinfusion bolus given position changes. now /-2
[2023-04-17] MEDS: fentaNYL-bupivacaine (epidural) 100 ML BAG EPIDURAL (01:46)
[2023-04-17] MEDS: Penicillin G 3,000,000 Units 50 ML 100 UNITS IV ×2 (02:08→06:13)
[2023-04-17] MEDS: Magnesium Sulfate 20 GM/500 ML BAG IV (06:27)
--- NOTE | 2023-04-17 08:21 | EX.PCM.OBRPT ---
Assessment & Plan (1) Preeclampsia, severe: COMMENT: proceed with magnesium sulfate, labetalol, IOL pitocin Epi PRN (2) Positive GBS test: COMMENT: treat in labor (3) Vaginal discharge during : (4) Obesity affecting : QUALIFIERS: Trimester: third trimester Obesity type affecting : unspecified obesity Qualified Code(s): O99.213 - Obesity complicating , third trimester COMMENT: 1 tm GCT, encouraged healthy weight gain bmi 45, start nst's weekly (5) Rh negative, antepartum: COMMENT: Rhogam injection @ 28 weeks and PRN for bleeding. Rhogam given 09/03/22 in ER (6) Supervision of high risk , antepartum: COMMENT: PRR , ERIN 04/13/23 boy Porsha Morgan Evelyn Bryce (7) : QUALIFIERS: Weeks of gestation: 40 weeks Qualified Code(s): Z3A.40 - 40 weeks gestation of COMMENT: declined genetic and carrier testing, nl anatomy Maternal Data Information ERIN Calculator Estimated Delivery Date Method Current WG Current Estimate 04/13/23 LMP (Certain) 40w 4d Final ERIN Source: LMP Gestational age: 40 weeks 4 days Vaginal Delivery Maternal Presentation Maternal Presentation: Medically Indicated Induction Type of Induction: Pitocin and Amniotomy Medical Reason for Induction: Preeclampsia, eclampsia Operative Information Date of Procedure: 04/17/23 Pre-Operative Diagnosis: 33 y/o @ 40 weeks 4 days, severe pre-eclampsia, morbid obesity, category 2 tracing with deep variable decelerations Post-Operative Diagnosis: 33 y/o @ 40 weeks 4 days, severe pre-eclampsia, morbid obesity, category 2 tracing with deep variable decelerations, minimal shoulder dystocia Surgery / Procedure Performed: Vacuum Assisted Vaginal Delivery Type of Anesthesia: Epidural Drain: Eid to straight drain Estimated Blood Loss: 100cc Findings Description of Procedure: Details of delivery: This is a 33year old @ 40 weeks 3 days who was admitted to labor and delivery for severe pre-eclampsia. The decision was made to perform a vacuum extraction due to persistent deep variable decelerations despite amnioinfusion running. The risk benefits and alternatives of the procedure were discussed with the patient and verbal consent was obtained. The was noted to be at a +2 station, the cervix was 9.5 cm dilated and the rim of the cervix was reducible. She had pushed for 45 minutes with adeuate descent for first 30 minutes. The infant's head was noted to be in the occiput posterior presentation. After attmept to turn the position, the fetus experieced another prolonged deep deceleration. The vacuum was placed on the posterior aspect of the head, voiding direct position over the posterior fontanelle. This was confirmed digitally. With the patient's next contraction, the vacuum was inflated and a gentle downward pressure was used to assist with bringing the baby's head to a +3 station. With 1 pull and 0 pop offs. The head was delivered atraumatically. A double nuchal cord was noted. And reduced without difficulty. The anterior shoulder was wedged under the pubic bone fairly tighly. The patient's legs were placed in McRobert's maneuver, The posterior arm was grasped and delivered. A double nuchal cord was noted. And reduced without difficulty. The 's anterior shoulder then delivered without difficulty. The infant was handed off to the patient's chest. The was found to be vigorous and crying and moving of all 4 extremities. The mouth and nares were bulb suctioned. After 60 second delay the cord was clamped and cut and the was handed off to the awaiting nurses for routine assessment. The placenta was delivered with gentle traction and uterine massage. Inspection of the vagina cervix and perineum was performed. There were no lacerations to the vagina or to the cervix. The peritoneum was found to have a 1st degree perineal laceration. The perineal laceration was closed using a 3-0 Vicryl in the usual sterile fashion. The patient tolerated the procedure well sponge lap and needle counts were correct x2 and she is now recovering in stable condition. Presentation: Vertex Amniotic Membrane Rupture Type: Artificial Amniotic Fluid Description: Clear Placental Delivery Description: Spontaneous Placenta Disposition: [facility] Cord Vessel Description: 3 Vessels Cord Entanglement: Around neck x 2, loose Cord Gases: ABG and VBG Infant A Gender: Male (1 minute): 8 (5 minute): 9 Delayed Cord Clamping: Yes Post Vaginal Delivery Medications Given After Delivery: IV Pitocin Episiotomy Description: None Laceration: 1st degree Complication Complications: None Multi Select Codes Urinary/Genital Urinary/Genital CPT Codes: 33014 Vaginal Delivery global pkg and Other Procedure See Report (vacuum delivery )
[2023-04-17] MEDS: Oxytocin 15 Units/NS 250ml 15 UNITS/250 ML IV.SOLN 83 UNITS IV (08:40)
[2023-04-17] MEDS: Ibuprofen 600 MG Tablet PO ×2 (10:19→16:46)
[2023-04-17] MEDS: Lactated Ringers 1,000 ML 25 ML IV (12:43)
[2023-04-17] MEDS: Acetaminophen 500 MG Tablet 1000 MG PO (20:24)
[2023-04-18] VITALS (32 sets, daily range): BP systolic 98–157; BP diastolic 55–86; PULSE 62–89; RESP 14–24; TEMP 36.4–37.3; O2SAT 97–99
[2023-04-18] MEDS: Ibuprofen 600 MG Tablet PO ×2 (01:11→11:06)
[2023-04-18] MEDS: Magnesium Sulfate 20 GM/500 ML BAG IV (02:13)
--- NOTE | 2023-04-18 07:20 | NURSING ---
bedside report given to Artur Ingram RN who is assuming care of pt at this time
[2023-04-18] MEDS: 0.9% Saline Lock 10 ML Syringe IV (08:02)
[2023-04-18] MEDS: Acetaminophen 500 MG Tablet 1000 MG PO (08:19)
--- NOTE | 2023-04-18 11:35 | PCM.PN.OB ---
Subjective Subjective Patient doing well without complaints. Tolerating PO. Ambulating and voiding without difficulty. Feeding well. Denies chest pain, shortness of breath, calf pain/swelling, fevers, chills, lightheadedness. She wants to go home today if possible. Objective Data Objective Data Vital Signs: Vital Signs Temp Pulse Resp BP Pulse Ox O2 Del Method 97.6 F L 77 16 140/81 H 98 Room Air 04/18/23 08:06 04/18/23 11:08 04/18/23 11:08 04/18/23 11:08 04/18/23 11:08 04/18/23 11:08 Oxygen Delivery Method Room Air Weight: 292 lb Body Mass Index (BMI) 45.7 Intake & Output: Intake and Output for Last 24 Hours 04/16/23 04/17/23 04/18/23 23:59 23:59 23:59 Intake Total 1611.61 / 1619.28 4060.52 / 4060.52 788.34 / 788.34 Output Total 400 / 400 1950 / 1950 275 / 275 Balance 1211.61 / 1219.28 2110.52 / 2110.52 513.34 / 513.34 Lab / Micro Data 04/16/23 16:14 04/16/23 16:14 ROS Constitutional Constitutional: Denies chills, fatigue, fever(s), poor appetite or weakness Eyes Eyes: Denies blurry vision, change in vision, seeing flashes or spots in vision ENT HEENT: Denies dizziness, headache(s), loss taste/smell or sore throat Cardiovascular Cardiovascular: Denies chest pain, dizziness, dyspnea, irregular heart rhythm, palpitations or rapid heart rate Respiratory/Chest Respiratory/Chest: Denies chest tightness, cough, dyspnea or breast pain Gastrointestinal Gastrointestinal: Denies abdominal pain, constipation or vomiting Genitourinary Genitourinary: Denies dysuria or flank pain Musculoskeletal Musculoskeletal: Denies difficulty walking, joint pain, limited range of motion or numbness Neurologic Neurologic: Denies abnormal movements, abnormal speech, dizziness, numbness, seizure-like activity or syncope Psychiatric Psychiatric: Denies anxiety, behavioral changes, change in appetite, confusion, depression or suicidal thoughts Physical Exam Const alert, oriented x3 and no apparent distress General Appearance: cooperative and comfortable Resp normal respiratory effort Cardio regular rate GI normal to inspection, nondistended, normoactive bowel sounds GI Narrative: uterus is firm below umbilicus Palpation: soft Back/Spine no CVA tenderness and thoraco-lumbar ROM normal Extremity normal to inspection, no clubbing, cyanosis or edema, no calf tenderness and no pedal edema Psych mental status grossly normal, thought process normal, cooperative, affect normal, speech normal, activity/motor behavior normal, denies homicidal ideation and denies suicidal ideation Assessment & Plan (1) Preeclampsia, severe: COMMENT: proceed with magnesium sulfate, labetalol, IOL pitocin Epi PRN (2) Positive GBS test: COMMENT: treat in labor (3) Vaginal discharge during : (4) Obesity affecting : QUALIFIERS: Trimester: third trimester Obesity type affecting : unspecified obesity Qualified Code(s): O99.213 - Obesity complicating , third trimester COMMENT: 1 tm GCT, encouraged healthy weight gain bmi 45, start nst's weekly (5) Rh negative, antepartum: COMMENT: Rhogam injection @ 28 weeks and PRN for bleeding. Rhogam given 09/03/22 in ER (6) Supervision of high risk , antepartum: COMMENT: PRR , ERIN 04/13/23 boy Porsha Morgan Evelyn Bryce (7) : QUALIFIERS: Weeks of gestation: 40 weeks Qualified Code(s): Z3A.40 - 40 weeks gestation of COMMENT: declined genetic and carrier testing, nl anatomy (8) Status post vaginal delivery: PLAN: Plan s/p PPD # 1 1. routine post delivery care 2. breast feeding- support given 3. rh positive 4. rubella immune 5. need serial bp before deciding on time of dc. she is off mag now for a few hours only but wants to go home
[2023-04-18] MEDS: Labetalol 200 MG Tablet PO (13:05)
--- NOTE | 2023-04-18 15:54 | DCINST_ITS ---
Discharge Instructions Diet Discharge Diet: No restrictions Activity Discharge Activity: Return to Normal Activity, May Not Drive (while taking narcotic pain medications.) and May Shower May resume sexual activity in: 4-6 weeks Dressing / Incision Call your doctor if your incision/area has: Continuous Slow Oozing, Sudden Increased Bleeding, Increased Pain/ Swelling, Increased Redness and Foul Smelling Discharge Follow Up Care Please Follow Up With: Rhoda Pereyra DO When: Call [phone] to make an appointment with your doctor in 1 week and 6 weeks. Test Results: Test results from this visit will be discussed in further detail at your follow- up appointment, if applicable. Discharge Plan Admission Admit Date/Time: 04/16/23 16:40 Primary Reason for Your Visit: vaginal delivery Attending Provider: Rhoda Pereyra Primary Care Provider: Shaun Gutierrez Discharge Orders/Prescriptions Prescriptions: New labetalol 200 mg tablet 200 mg PO TID 30 Days Qty: 90 0RF No Action vit,[id number] 1 TABLET tablet 1 tab PO DAILY Referrals / Follow Up: Shaun Gutierrez DO [Primary Care Provider] - Disposition Disposition (needs filled in before D/C Order can be placed): Home, Self Care
== END 2023-04-18 18:05 | disposition home or self-care (01) | DRG 807 ==
LOC: WPOUT 16:47 → WP 04-17 08:10
PROVIDERS: Obstetrics & Gynecology; Admitting Provider Obstetrics & Gynecology; PCP Family Medicine; Referring Provider Obstetrics & Gynecology; Visit Provider Obstetrics & Gynecology
DX: O76 Abnormality in fetal heart rate and rhythm complicating labor and delivery (principal); Z37.0 Single live birth; O14.14 Severe pre-eclampsia complicating childbirth; E66.01 Morbid (severe) obesity due to excess calories; O99.214 Obesity complicating childbirth; O70.0 First degree perineal laceration during delivery; Z3A.40 40 weeks gestation of pregnancy; O99.824 Streptococcus B carrier state complicating childbirth; O26.893 Other specified pregnancy related conditions, third trimester; Z67.11 Type A blood, Rh negative; O69.81X0 Labor and delivery complicated by cord around neck, without compression, not applicable or unspecified; Z87.59 Personal history of other complications of pregnancy, childbirth and the puerperium
CPT/HCPCS: 59025; 59050; 82565; 82570; 84156; 84450; 84460; 84550; 85025; 86780; 86850; 86900; 86901; 99221; J7030; J7120; A4216; G0378